=== PATIENT | male | born 1965 | race Caucasian/White ===

== ENCOUNTER 2023-03-04 14:02 | Emergency (ER) | payer BC, SELFPAY ==
[2023-03-04 14:15] VITALS: BP 166/78; PULSE 77; RESP 16; TEMP 36.6; O2SAT 99
--- NOTE | 2023-03-04 14:54 | ED.URI ---
HPI - URI/Sore Throat General Chief Complaint: Upper Respiratory Infection Stated Complaint: cold Source: patient and RN notes reviewed Mode of arrival: ambulatory Limitations: no limitations History of Present Illness HPI Narrative: 58 y/o male presented for c/o sinus pressure and congestion for over one week. Reports large amount of post nasal drainage, worse at night. Cough is keeping him up throughout the night. Denies shortness of breath, wheezing, nausea, vomiting, fevers or chills. States he gets the symptoms every February. Taking wept-[id number]-[id number] medication without relief. Takes Zyrtec and Flonase year round. MD elicited complaint: cough Related Data Home Medications Medication Instructions Recorded Confirmed armodafinil 250 mg tablet 250 mg PO QAM 03/04/23 03/04/23 Allergies Allergy/AdvReac Type Severity Reaction Status Date / Time amoxicillin Allergy Diarrhea Verified 03/04/23 14:25 Review of Systems Review of Systems: CONSTITUTIONAL: Denies malaise, chills, sweats, fever EYES: Denies visual changes, redness, or discharge ENT: Reports rhinorrhea, congestion, sinus pain, deniesotalgia, sore throat CARDIOVASCULAR: Denies chest pain, palpitations, edema RESPIRATORY: Reports cough, post nasal drainage. Denies dyspnea GASTROINTESTINAL: Denies abdominal pain, nausea, vomiting, diarrhea SKIN: Denies rash or itching MUSCULOSKELETAL: denies myalgia NEUROLOGIC: Denies headache [facility] Past Medical History Medical History (Updated 03/04/23 @ 15:03 by Xena Rivera, URBAN) No pertinent past medical history Exam Narrative: GENERAL: mildly ill-appearing, nontoxic no acute distress. HEAD: Normocephalic EYES: PERRLA, conjunctivae clear ENT: Mucous membranes moist. TMs pearly khalil with dull light reflex bilaterally; no tragal tenderness. Oropharynx not erythematous without lesions or exudate, no drooling, no hoarseness, no trismus, uvula midline. No tripod positioning, muffled voice, soft palate or pharyngeal wall bulging NECK: Supple. No lymphadenopathy CHEST: Clear to auscultation, breath sounds equal. No wheezing, rhonchi, rales, or stridor. No respiratory distress, speaks in full sentences. HEART: Regular rate and rhythm. No murmur heard. SKIN: Warm, dry, no rash. NEURO: Alert and oriented x3. PSYCH: Normal mood and affect Course Course Emergency Course: Patient is aware of diagnosis, understands and agrees to treatment plan. Anticipatory guidance given. Patient agrees to follow-up as directed and is aware of reasons to seek care at the emergency department. Portions of this record may have been created with voice recognition software Level of Care: Express Care Visit Vital Signs Vital signs: Vital Signs Temperature 98 F 03/04/23 14:15 Pulse Rate 77 03/04/23 14:15 Respiratory Rate 16 03/04/23 14:15 Blood Pressure 166/78 H 03/04/23 14:15 Pulse Oximetry 99 03/04/23 14:15 Oxygen Delivery Room Air 03/04/23 14:15 Temperature 98 F 03/04/23 14:15 Pulse Rate 77 03/04/23 14:15 Respiratory Rate 16 03/04/23 14:15 Blood Pressure 166/78 H 03/04/23 14:15 Pulse Oximetry 99 03/04/23 14:15 Oxygen Delivery Room Air 03/04/23 14:15 reviewed MDM - URI/Sore Throat MDM Narrative Medical decision making narrative: Discussed physical exam findings. Advised supportive measures and signs/symptoms to go to the ER. Pt is appropriate for outpt treatment and f/u. Differential Diagnosis Differential diagnosis: Likely upper respiratory infection, sinusitis and viral infection Discharge Plan Discharge Clinical Impression: Upper respiratory infection Patient Disposition: Home, Self-Care Condition: Stable Instructions: Antibiotic Form, Upper Respiratory Infection (ED) Additional Instructions: Recommend continuing Flonase spray and Zyrtec (or Claritin/Marine) over the counter Cough syrup may cause drowsiness; avoid driving or take it at night time.
== END 2023-03-04 15:02 | disposition home or self-care (01) ==
PROVIDERS: Emergency Provider Nurse Practitioner Family; PCP Internal Medicine Geriatric Medicine
DX: J06.9 Acute upper respiratory infection, unspecified (principal)
CPT/HCPCS: 99213; G0463